=== PATIENT | male | born 1975 | race Caucasian/White ===

== ENCOUNTER 2020-06-29 09:44 | Emergency (ER) | payer OTHER ==
[~2020-06-29] VITALS: Ht 175.3 cm; Wt 110.2 kg
[2020-06-29 09:57] VITALS: Ht 175.3 cm; Wt 110.2 kg
[2020-06-29 10:28] LABS: BASOPHIL % 0.2 % (0-2); PLATELET COUNT 159 x10^3mcL (130-400); RED CELL DISTRIBUTION WIDTH 13.9 % (11.5-14.5)
[2020-06-29 10:40] LABS: CALCIUM 9.1 mg/dL (8.5-10.1); CARBON DIOXIDE 26.4 mmol/L (21-32); CHLORIDE SERUM 98 mmol/L (98-107); GFR1 > 60 mL/min; GLUCOSE SERUM 271 mg/dL (74-106); POTASSIUM SERUM 4.2 mmol/L (3.5-5.1); SODIUM SERUM 132 mmol/L (136-145)
[2020-06-29 10:45] LABS: ALBUMIN 3.6 g/dL (3.4-5.0); ALKALINE PHOSPHATASE 77 U/L (46-116); ALT/SGPT 113 U/L (16-63); AST/SGOT 56 U/L (15-37); BILIRUBIN TOTAL 1.1 mg/dL (0.20-1.00); LIPASE 98 IU/L (73-393); TOTAL PROTEIN, SERUM 8.1 g/dL (6.4-8.2)
[2020-06-29 10:47] LABS: CHOLESTEROL 288 mg/dL (<200); CHOLESTEROL/HDL RATIO 11.1; HDL CHOLESTEROL 26 mg/dL (40-60); TRIGLYCERIDES 924 mg/dL (<150)
[2020-06-29 10:53] LABS: T3 TOTAL 1.19 ng/mL
[2020-06-29 10:54] LABS: FREE T4 1.3 ng/dL (0.76-1.46); FREE THYROXINE INDEX 2.7 ug/dL (1.4-4.5)
[2020-06-29 12:16] LABS: microscopic required? YES; urine erythrocyte TRACE (NEGATIVE)
[2020-06-29 14:51] VITALS: BP 142/88
== END 2020-06-29 14:51 | disposition home or self-care (01) ==
LOC: ED 09:44
PROVIDERS: Specialist
DX: K76.0 Fatty (change of) liver, not elsewhere classified (principal); E66.9 Obesity, unspecified; I10 Essential (primary) hypertension; E78.00 Pure hypercholesterolemia, unspecified
CPT/HCPCS: 83880; 84439; J1885; J7030; Q0092; Q9967